=== PATIENT | male | born 1950 | race Caucasian/White ===

== ENCOUNTER → 2020-02-06 | Outpatient (CLI) | payer MEDICARE, OTHER ==
--- NOTE | 2020-02-06 16:40 | US ---
EXAMINATION TYPE: US venous doppler duplex LE LT DATE OF EXAM: 02/06/2020 4:29 PM COMPARISON: NONE CLINICAL HISTORY: M79.605 Left leg pain. SIDE PERFORMED: Left TECHNIQUE: The lower extremity deep venous system is examined utilizing real time linear array sonog chiara with graded compression, doppler sonography and color-flow sonography. VESSELS IMAGED: External Iliac Vein (EIV) Common Femoral Vein Deep Femoral Vein Greater Saphenous Vein * Femoral Vein Popliteal Vein Small Saphenous Vein * Proximal Calf Veins (* superficial vessels) Left Leg: Negative for DVT There are 2 cystic structures in pop fossa measuring 1.) 2.2 x 0.8 x 1.0cm, and 2.) 1.9 x 1.1 x 1.3cm IMPRESSION: No evidence for DVT. Alvarez's cysts as noted.
== END | disposition home or self-care (01) ==
LOC: RADUSMAIN 15:57
PROVIDERS: ATTEND Internal Medicine
DX: M71.22 Synovial cyst of popliteal space [Baker], left knee (principal); M79.605 Pain in left leg

== ENCOUNTER → 2022-06-06 | Outpatient (CLI) | payer MEDICARE, OTHER ==
--- NOTE | 2022-06-06 11:06 | US ---
EXAMINATION TYPE: US venous doppler duplex LE LT DATE OF EXAM: 06/06/2022 10:47 AM COMPARISON: Left lower extremity venous ultrasound February 06, 2020 CLINICAL HISTORY: I80.9 PHLEBITIS. edema SIDE PERFORMED: Left TECHNIQUE: The lower extremity deep venous system is examined utilizing real time linear array sonog chiara with graded compression, doppler sonography and color-flow sonography. VESSELS IMAGED: Common Femoral Vein Deep Femoral Vein Greater Saphenous Vein * Femoral Vein Popliteal Vein Small Saphenous Vein * Proximal Calf Veins (* superficial vessels) Left Leg: Negative for DVT Grayscale, color doppler, spectral doppler imaging performed of the deep veins of the left lower extr emity. There is normal flow, compressibility, vascular waveforms. IMPRESSION: No ultrasound evidence for acute DVT in the left lower extremity.
== END | disposition home or self-care (01) ==
LOC: RADUSWWP 10:26
PROVIDERS: ATTEND Orthopaedic Surgery
DX: I80.9 Phlebitis and thrombophlebitis of unspecified site (principal)